=== PATIENT | female | born 1990 | race Caucasian/White ===

== ENCOUNTER 2016-09-14 21:14 | Emergency (ER) | payer SELFPAY ==
[2016-09-14] MEDS ORDERED: TORAdol 30 mg Injection IV ONE (21:33)
[2016-09-14] MEDS ORDERED: Sodium Chloride 0.9% 1000 ML 1,000 ML IV STA (21:33)
[2016-09-14] MEDS ORDERED: THIAMINE 200 MG/2 ML IV ONE (21:37)
[2016-09-14] MEDS ORDERED: Zofran 4 MG/2 ML VIAL IV ONE (21:39)
[2016-09-14] MEDS ORDERED: Sodium Chloride 0.9% 1000 ML 1,000 ML ONE (21:43)
[2016-09-14] MEDS ORDERED: Zofran 4 MG/2 ML VIAL ONE (21:44)
[2016-09-14] MEDS ORDERED: THIAMINE 200 MG/2 ML ONE (21:44)
[2016-09-14] MEDS ORDERED: TORAdol 30 mg Injection ONE (21:44)
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
[2016-09-14 21:54] LABS: BASOPHIL % 0.4 % (0.0-0.4); Granulocytes % 73.9 % (36.0-66.0); Lymphocytes % 19.1 % (24.0-44.0); Mean Cell Volume 84.1 fl (78-100); Mean Corpuscular Hemoglobin 26.6 pg (26-32); Mean Platelet Volume 11.3 fl (6-9.5); Monocytes % 6.6 % (0.0-12.0); Platelet Count 232 K/mm3 (150-450); Red Blood Count 4.02 M/mm3 (4.1-5.4); White Blood Count 5.2 K/mm3 (4.0-10.5)
[2016-09-14 22:16] LABS: ALBUMIN 4.5 g/dL (3.4-5.0); ALKALINE PHOSPHATASE 63 U/L (46-116); ANION GAP 16.8 MEQ/L (5-15); BILIRUBIN,TOTAL 0.8 mg/dL (0.2-1.0); BLOOD UREA NITROGEN 15 mg/dL (9-20); CHLORIDE 106 mEq/L (98-107); Carbon Dioxide 22.9 mEq/L (21-32); Glucose 109 MG/DL (70-110); LIPASE 107 U/L (73-393); Potassium 3.7 mEq/L (3.5-5.1); SGOT/AST 19 U/L (15-37); SGPT/ALT 16 U/L (12-78); SODIUM 142 mEq/L (136-145); Total Protein 8.3 gm/dL (6.4-8.2)
[2016-09-14] MEDS ORDERED: NORCO 5/325 MG PO ONE ×2 (23:17→23:55)
[2016-09-14] MEDS ORDERED: NORCO 5/325 MG ONE (23:19)
[2016-09-14] MEDS ORDERED: BACIGUENT PACKET TP ONE (23:33)
[2016-09-14] MEDS ORDERED: BACIGUENT PACKET ONE (23:37)
[2016-09-15] MEDS ORDERED: NORCO 5/325 MG ONE (00:10)
[2016-09-15 00:14] VITALS: BP 121/85; PULSE 110; O2SAT 98
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
== END 2016-09-15 00:30 | disposition home or self-care (01) ==
LOC: ED 21:14
DX: S00.93XA Contusion of unspecified part of head, initial encounter (principal); S50.11XA Contusion of right forearm, initial encounter; S60.221A Contusion of right hand, initial encounter; Y08.02XA Assault by strike by baseball bat, initial encounter
CPT/HCPCS: 36000; 36415; 70450; 72125; 73090; 73130; 80053; 82150; 83690; 84703; 85025; 93005; 93041; 94760; 96360; 96374; 96375; 99284; G0481; J1885; J2405; L3908

== ENCOUNTER 2019-02-06 21:04 | Emergency (ER) | payer OTHER ==
[2019-02-06] MEDS ORDERED: Sodium Chloride 0.9% 1000 ML 1,000 ML IV STA (21:20)
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
[2019-02-06] MEDS ORDERED: Sodium Chloride 0.9% 1000 ML 2,000 ML ONE (21:26)
[2019-02-06] MEDS ORDERED: SUBLIMAZE 100 MCG/2 ML IV ONE (21:29)
[2019-02-06 21:30] VITALS: BP 114/66; PULSE 110; O2SAT 99
[2019-02-06] MEDS ORDERED: SUBLIMAZE 100 MCG/2 ML ONE (21:30)
[2019-02-06 21:42] LABS: A-aADO2 275; ABG HEMOGLOBIN 10.9; ARTERIAL BLD GAS O2 SATURATION 99.7 % (95-100); ARTERIAL BLD GAS TIDAL VOLUME 490 cc; ARTERIAL BLOOD GAS BASE EXCESS -6.9 (-2.0-2.0); ARTERIAL BLOOD GAS FIO2 100 %; ARTERIAL BLOOD GAS PCO2 30 mmHg (35-45); ARTERIAL BLOOD GAS PEEP 5 cmH2O; ARTERIAL BLOOD GAS PO2 401 mmHg (75-100); ARTERIAL BLOOD GAS pH 7.37 (7.35-7.45); CARBOXYHEMOGLOBIN 2.7 % THgb (0.0-6.9); HCO3- 17.3 (22-28); HGB O2 SAT 95.6 g/dF (94-100); Methhemoglobin 1.4 % (1.4-1.5); paO2 pAO1 0.59
[2019-02-06 21:44] LABS: Lactic Acid 2.5 (0.4-2.0)
[2019-02-06 21:52] LABS: Appearance CLEAR (CLEAR); Bilirubin NEGATIVE (NEGATIVE); Blood NEGATIVE Ery/ul (0-5); Glucose NEGATIVE (NEGATIVE); Ketones NEGATIVE (NEGATIVE); Leukocyte Esterase NEGATIVE (NEGATIVE); Nitrite NEGATIVE (NEGATIVE); Protein,Urine Dip NEGATIVE (Negative); Specific Gravity 1.003 (1.005-1.025); Urobilinogen NEGATIVE mg/dL (0-1)
[2019-02-06] MEDS ORDERED: Versed 2 MG/2 ML Injection IV ONE ×2 (22:15→22:31)
[2019-02-06] MEDS ORDERED: Ketamine HCl 50 MG/ML IV ONE ×2 (22:22→22:32)
[2019-02-06 22:54] LABS: Amphetamine,Urine NEGATIVE (NEGATIVE); Barbiturate,Urine NEGATIVE (NEGATIVE); Benzodiazepine,Urine NEGATIVE (NEGATIVE); Cocaine,Urine NEGATIVE (NEGATIVE); Methadone,Urine NEGATIVE (NEGATIVE); Opiate,Urine NEGATIVE (NEGATIVE); PCP,Urine NEGATIVE (NEGATIVE); THC,Urine POSITIVE (NEGATIVE)
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
== END 2019-02-06 22:00 | disposition short-term general hospital (02) ==
LOC: ED 21:04
DX: R41.82 Altered mental status, unspecified (principal); S06.899A Other specified intracranial injury with loss of consciousness of unspecified duration, initial encounter; T14.90XA Injury, unspecified, initial encounter; V89.0XXA Person injured in unspecified motor-vehicle accident, nontraffic, initial encounter; Y93.9 Activity, unspecified; Y92.830 Public park as the place of occurrence of the external cause; Z72.89 Other problems related to lifestyle; B19.20 Unspecified viral hepatitis C without hepatic coma
CPT/HCPCS: 36000; 36600; 51702; 70450; 71045; 72125; 72192; 80307; 81001; 82375; 82803; 83605; 87086; 93005; 94002; 96360; 96374; 99284; 99291; J3010

== ENCOUNTER 2019-10-23 13:26 | Emergency (ER) | payer BC, OTHER ==
--- NOTE | 2019-10-23 14:07 | ERPHSYRPT ---
- History of Present Illness Patient Subjective Stated Complaint: PT states "I had knee surgery on Sep 20. Last wed I noticed what looked like a pimple and my right knee is swelling and hurts up into my thigh." Triage Nursing Assessment: Pt presented alert and oriented X 3, skin pwd pt ambulates with a limp. PT right knee red, small pimple like blister on knee with rednees to skin around knee and up into the thigh. Physician History: Patient states "I had knee surgery on Sep 20. Last wed I noticed what looked like a pimple and my right knee is swelling and hurts up into my thigh." ambulates with a limp. Patient right knee red, small pimple like blister on knee with rednees to skin around knee and up into the thigh. Severity of Pain-Max: moderate Severity of Pain-Current: moderate Lower Extremities Pain: knee: right Associated Symptoms: unable to bear weight Allergies/Adverse Reactions: shellfish derived Allergy (Verified 07/11/16 17:08) aloe vera Adverse Reaction (Verified 07/11/16 17:08) Hx Tetanus, Diphtheria Vaccination/Date Given: Yes Hx Influenza Vaccination/Date Given: No Hx Pneumococcal Vaccination/Date Given: No Immunizations Up to Date: Yes - Review of Systems Constitutional: No Fever, No Chills Eyes: No Symptoms Ears, Nose, & Throat: No Symptoms Respiratory: No Cough, No Dyspnea Cardiac: No Chest Pain, No Edema, No Syncope Abdominal/Gastrointestinal: No Abdominal Pain, No Nausea, No Vomiting, No Diarrhea Genitourinary Symptoms: No Dysuria Musculoskeletal: Joint Redness (right knee), No Back Pain, No Neck Pain, No Deformity, No Fall Skin: No Rash Neurological: No Dizziness, No Focal Weakness, No Sensory Changes Psychological: No Symptoms Endocrine: No Symptoms All Other Systems: Reviewed and Negative - Past Medical History Pertinent Past Medical History: Yes Neurological History: Migraines ENT History: No Pertinent History Cardiac History: No Pertinent History Respiratory History: No Pertinent History Endocrine Medical History: No Pertinent History Musculoskeletal History: No Pertinent History GI Medical History: Hepatitis History: No Pertinent History Psycho-Social History: Depression, Other Female Reproductive Disorders: No Pertinent History Other Medical History: HEPATITIS C - Past Surgical History Past Surgical History: Yes Neuro Surgical History: No Pertinent History Cardiac: No Pertinent History Respiratory: No Pertinent History Gastrointestinal: Cholecystectomy Genitourinary: No Pertinent History Musculoskeletal: No Pertinent History Female Surgical History: No Pertinent History Other Surgical History: CYST RENIVED. right knee. egd - Social History Smoking Status: Current every day smoker How long have you smoked: years Exposure to second hand smoke: Yes Alcohol Use: Chronic (states have been using alcohol quite heavily since release from residential in early Jun.) Drug Use: none Patient Lives Alone: No - Female History Hx Last Menstrual Period: 10/09/2019 Hx Now: No - Nursing Vital Signs Nursing Vital Signs: Initial Vital Signs Temperature 97.7 F 10/23/19 13:32 Pulse Rate 102 H 10/23/19 13:32 Respiratory Rate 22 10/23/19 13:32 Blood Pressure 134/90 10/23/19 13:32 O2 Sat by Pulse Oximetry 100 10/23/19 13:32 Pain Scale Pain Intensity 5 - Physical Exam General Appearance: alert Eyes, Ears, Nose, Throat Exam: moist mucous membranes Neck Exam: non-tender, supple Cardiovascular/Respiratory Exam: chest non-tender, normal breath sounds, regular rate/rhythm, no respiratory distress Gastrointestinal/Abdominal Exam: non-tender, guarding Back Exam: normal inspection, No vertebral tenderness Knees Exam: right knee: pain, soft tissue tenderness, swelling Neuro/Tendon Exam: normal sensation, normal motor functions Mental Status Exam: alert, oriented x 3, cooperative Skin Exam: normal color, warm, dry SpO2: 100 - Course Nursing assessment & vital signs reviewed: Yes - Radiology Exams Knee X-ray Interpretation: Reviewed by me, Negative, No Fracture, No Subluxation Ordered Tests: Active Orders 24 hr Category Date Time Status KNEE (3 VIEWS) Stat Exams 10/23/19 14:03 Taken CBC W DIFF Stat Lab 10/23/19 14:15 Completed Medication Summary Generic Name Dose Route Start Last Admin Trade Name Freq PRN Reason Stop Dose Admin Ketorolac Tromethamine 60 mg 10/23/19 14:46 Toradol 30 Mg Injection IM 10/23/19 14:47 STAT ONE Discontinued Medications Generic Name Dose Route Start Last Admin Trade Name Freq PRN Reason Stop Dose Admin Ceftriaxone Sodium 1,000 mg 10/23/19 14:45 Rocephin 1000 Mg Inj IM 10/23/19 14:46 STAT ONE Ibuprofen 400 mg 10/23/19 14:12 10/23/19 14:14 Motrin 400 Mg PO 10/23/19 14:13 400 mg STAT ONE Administration Ibuprofen Confirm 10/23/19 14:13 Motrin 400 Mg Administered 10/23/19 14:14 Dose 400 mg .ROUTE .STK-MED ONE Lab/Rad Data: Laboratory Result Diagrams 10/23/19 14:15 Laboratory Results 10/23/19 Range/Units 14:15 WBC 5.1 (4.0-10.5) K/mm3 RBC 4.10 (4.1-5.4) M/mm3 Hgb 12.0 (12.0-16.0) gm/dl Hct 36.7 (35-47) % MCV 89.5 (78-100) fl MCH 29.3 (26-32) pg MCHC 32.7 (32-36) g/dl RDW 14.4 H (11.5-14.0) % Plt Count 164 (150-450) K/mm3 MPV 12.2 H (7.5-11.0) fl Gran % 63.5 (36.0-66.0) % Eos # (Auto) 0.08 (0-0.5) Absolute Lymphs (auto) 1.32 (1.0-4.6) Absolute Monos (auto) 0.44 (0.0-1.3) Lymphocytes % 25.7 (24.0-44.0) % Monocytes % 8.6 (0.0-12.0) % Eosinophils % 1.6 (0.00-5.0) % Basophils % 0.6 (0.0-0.4) % Absolute Granulocytes 3.27 (1.4-6.9) Basophils # 0.03 (0-0.4) - Progress Progress: improved, pain not gone completely Counseled pt/family regarding: lab results, diagnosis, need for follow-up, rad results - Departure Departure Disposition: Home Clinical Impression: Cellulitis of knee, right Condition: Stable Critical Care Time: No Referrals: AMANDA ISAACS [Primary Care Provider] - Instructions: Knee Pain (DC), Cellulitis (Skin Infection), Adult (DC) Additional Instructions: Discharge/Care Plan SERAFIN LLOYDKIRAN MATHEWS was seen on 10/23/19 in the Emergency Room. The patient was counseled regarding Diagnosis,Lab results, Imaging studies, need for follow up and when to return to the Emergency Room. Prescriptions given: Discharge Note I have spoken with the patient and/or caregivers. I have explained the patient' s condition, diagnosis and treatment plan based on the information available to me at this time. I have answered the patient's and/or caregiver's questions and addressed any concerns. The patient and/or caregivers have as good understanding of the patient's diagnosis, condition and treatment plan as can be expected at this point. The vital signs have been stable. The patient's condition is stable and appropriate for discharge from the emergency department. The patient will pursue further outpatient evaluation with the primary care physician or other designated or consulting physician as outlined in the discharge instructions. The patient and/or caregivers are agreeable to this plan of care and follow-up instructions have been explained in detail. The patient and/or caregivers have received these instruction. The patient/and or caregivers are aware that any significant change in condition or worsening of symptoms should prompt an immediate return to this or the closest emergency department or call 911. TADEO LLOYD was seen on 10/23/19 n the Emergency Room. At that time you were treated for an emergent condition, during your visit Laboratory, Radiology and/or other procedures may have been ordered. It is very important that you follow-up with your Primary Care Physician AMANDA ISAACS within the next 24- 48 hours to review your Emergency Room visit and the final results of testing that was ordered. Some test results such as Urine Cultures, Blood Cultures, and other cultures if ordered will not be finalized for 24-48 hours. If you do not have a Primary Care Provider please call the medical records department at [phone] ext [phone] to obtain a copy of your results or you may sign into our patient portal to obtain these results by visiting us @ [email or web address] and completing the following steps: 1. Click on the Patient Portal link 2. Click the Patient Self Enrollment Link to complete the enrollment form and entering your 3. Once the enrollment form is completed you will receive an email with a temporary ID and password at the email address you provided. 4. Next choose a user name and password. Your user name must be at least 4 characters long and your password must be at least 4 characters long. 5. Choose a security question from the list and provide your answer to the question. If you already have signed into the Health Portal you may access your Health Care Information 07/04 by the following steps: 1. Login to our website @ [email or web address] 2. Enter your original user name and password. FAQS [facility] Portal is an online tool that contains your Lab Results, Radiology Reports, Visit History, Discharge Instructions and Health Summary Lab and Radiology Results will not be available for 72 hours on the portal. The Portal is a secure site, passwords are encryted and URLs are re-written so they cannot be copied and pasted. You and authorized family members are the only ones who can access your Portal. Also there is a timeout feature that protects your information if you leave the Portal page open. If you have technical difficulty please use the Contact Us link on the page this will allow you to submit any questions you have regarding the Portal or you may contact the Medical Record Department at [phone]. Prescriptions: Cephalexin Mh 500 mg [Keflex 500 mg] 500 mg PO Q6H #40 capsule Naproxen 500 mg [Naprosyn 500 MG] 500 mg PO BIDAC #30 tablet
[2019-10-23] MEDS ORDERED: MOTRIN 400 MG PO ONE (14:12)
[2019-10-23] MEDS ORDERED: MOTRIN 400 MG ONE (14:13)
[2019-10-23 14:23] LABS: Absolute Neutrophil Ct (ANC) 3.27 (1.4-6.9); BASOPHIL % 0.6 % (0.0-0.4); Basophil (Absolute #) 0.03 (0-0.4); Eosinophil % 1.6 % (0.00-5.0); Eosinophil (Absolute #) 0.08 (0-0.5); Hematocrit 36.7 % (35-47); Lymphocyte (Absolute #) 1.32 (1.0-4.6); Lymphocytes % 25.7 % (24.0-44.0); Mean Cell Volume 89.5 fl (78-100); Mean Corpuscular Hemoglobin 29.3 pg (26-32); Mean Corpuscular Hgb Concent. 32.7 g/dl (32-36); Mean Platelet Volume 12.2 fl (7.5-11.0); Monocyte (Absolute #) 0.44 (0.0-1.3); Monocytes % 8.6 % (0.0-12.0); Neutrophil % 63.5 % (36.0-66.0); Platelet Count 164 K/mm3 (150-450); Red Cell Distribution Width 14.4 % (11.5-14.0); White Blood Count 5.1 K/mm3 (4.0-10.5)
[2019-10-23] MEDS ORDERED: Rocephin 1000 MG INJ IM ONE (14:45)
[2019-10-23] MEDS ORDERED: TORAdol 30 mg Injection IM ONE (14:46)
[2019-10-23 14:55] VITALS: BP 120/75; PULSE 84; O2SAT 98
[2019-10-23] MEDS ORDERED: TORAdol 30 mg Injection ONE (14:55)
[2019-10-23] MEDS ORDERED: XYLOCAINE 1% HCL 20 ML MDV IJ ONE (14:55)
[2019-10-23] MEDS ORDERED: Rocephin 1000 MG INJ ONE (14:55)
--- NOTE | 2019-10-23 21:36 | XRAY ---
Indication: Diffuse pain. Status post knee surgery September 20, 2019. Comparison: None 3 views of the right knee demonstrates tiny nonspecific suprapatellar effusion. No other bony, articular, or soft tissue abnormalities.
== END 2019-10-23 15:28 | disposition home or self-care (01) ==
LOC: ED 13:26
DX: L03.115 Cellulitis of right lower limb (principal); Z98.890 Other specified postprocedural states
CPT/HCPCS: 36415; 73562; 85025; 96372; 99284; J0696; J1885; A9270-GY

== ENCOUNTER 2020-03-07 10:46 | Emergency (ER) | payer OTHER, BC ==
[2020-03-07] MEDS ORDERED: TORAdol 30 mg Injection IM ONE (10:58)
[2020-03-07] MEDS ORDERED: TORAdol 30 mg Injection ONE (11:00)
--- NOTE | 2020-03-07 11:01 | ERPHSYRPT ---
- History of Present Illness Time Seen by Provider: 03/07/20 10:55 Source: patient Exam Limitations: no limitations Physician History: Patient is a 29-year-old female presents to our ED for evaluation of pain and tingling to her bilateral hands. Symptoms have been ongoing for several weeks but have gotten acutely worse over the past couple days. Patient believes she has carpal tunnel syndrome. Patient's job requires repetitive motion. She has some soreness of her forearms as well. No blunt trauma. No fever. No nausea vomiting or diaphoresis. No chest pain or shortness of breath. No back pain. No neck pain. No headache. Symptoms are constant. Patient states symptoms are worse at night. Patient is otherwise healthy. She voices no other complaints at this time. Patient declined the possibility of and refused a urine test. Occurred: last week (Symptoms have been ongoing for several weeks but states that her symptoms have gotten worse over the past few days.) Quality: constant Severity of Pain-Max: moderate Severity of Pain-Current: mild Extremities Pain Location: hand: left (Bilateral hands.) Modifying Factors: Improves With: immobilization, movement, pain medication Associated Symptoms: none Allergies/Adverse Reactions: shellfish derived Allergy (Verified 03/07/20 11:03) aloe vera Adverse Reaction (Verified 03/07/20 11:03) Hx Tetanus, Diphtheria Vaccination/Date Given: Yes Hx Influenza Vaccination/Date Given: No Hx Pneumococcal Vaccination/Date Given: No - Review of Systems Constitutional: No Symptoms, No Fever, No Chills Eyes: No Symptoms Ears, Nose, & Throat: No Symptoms Respiratory: No Symptoms, No Cough, No Dyspnea Cardiac: No Symptoms, No Chest Pain, No Edema, No Syncope Abdominal/Gastrointestinal: No Symptoms, No Abdominal Pain, No Nausea, No Vomiting, No Diarrhea Genitourinary Symptoms: No Symptoms, No Dysuria Musculoskeletal: No Symptoms, No Back Pain, No Neck Pain Skin: No Symptoms, No Rash Neurological: No Symptoms, No Dizziness, No Focal Weakness, No Sensory Changes Psychological: No Symptoms Endocrine: No Symptoms Hematologic/Lymphatic: No Symptoms Immunological/Allergic: No Symptoms All Other Systems: Reviewed and Negative - Past Medical History Pertinent Past Medical History: Yes Neurological History: Migraines ENT History: No Pertinent History Cardiac History: No Pertinent History Respiratory History: No Pertinent History Endocrine Medical History: No Pertinent History Musculoskeletal History: No Pertinent History GI Medical History: Hepatitis History: No Pertinent History Psycho-Social History: Depression, Other Female Reproductive Disorders: No Pertinent History Other Medical History: HEPATITIS C - Past Surgical History Past Surgical History: Yes Neuro Surgical History: No Pertinent History Cardiac: No Pertinent History Respiratory: No Pertinent History Gastrointestinal: Cholecystectomy Genitourinary: No Pertinent History Musculoskeletal: No Pertinent History Female Surgical History: No Pertinent History Other Surgical History: CYST RENIVED. right knee. egd - Social History Smoking Status: Current every day smoker How long have you smoked: years Exposure to second hand smoke: Yes Alcohol Use: Chronic (states have been using alcohol quite heavily since release from [facility] in early Jun.) Drug Use: none Patient Lives Alone: No - Nursing Vital Signs Nursing Vital Signs: Initial Vital Signs Temperature 97.9 F 03/07/20 10:53 Pulse Rate 77 03/07/20 10:53 Respiratory Rate 16 03/07/20 10:53 Blood Pressure 127/88 03/07/20 10:53 O2 Sat by Pulse Oximetry 100 03/07/20 10:53 Pain Scale Pain Intensity 7 - Physical Exam General Appearance: no apparent distress, alert Neck Exam: non-tender, supple, full range of motion Cardiovascular/Respiratory Exam: chest non-tender, normal breath sounds, regular rate/rhythm, no respiratory distress Abdominal Exam: non-tender, No guarding Back Exam: normal inspection, normal range of motion, No vertebral tenderness Shoulder Exam: normal inspection, non-tender Elbow/Forearm Exam: normal inspection, non-tender Wrist Exam: normal inspection, normal ROM, pain (Positive Tinel sign and Phalen sign bilaterally. There is somewhat diminished sensation along the median nerve distribution. Mild tenderness along the left dorsal forearm extensor musculature.), No bone tenderness, No deformity, No ecchymosis Hand Exam: normal inspection, No bone tenderness Neuro/Tendon Exam: normal sensation, normal motor functions Mental Status Exam: alert, oriented x 3, cooperative Skin Exam: normal color, warm, dry SpO2 Interpretation: normal SpO2: 100 O2 Delivery: Room Air Ordered Tests: Active Orders 24 hr Category Date Time Status Nursing [Miscellaneous Nursing Order] ROUTINE Care 03/07/20 10:59 Active Medication Summary Discontinued Medications Generic Name Dose Route Start Last Admin Trade Name Freq PRN Reason Stop Dose Admin Dexamethasone 8 mg 03/07/20 11:12 Decadron 4 Mg PO 03/07/20 11:13 ONCE STA Ketorolac Tromethamine 60 mg 03/07/20 10:58 03/07/20 11:03 Toradol 30 Mg Injection IM 03/07/20 10:59 Not Given STAT ONE Ketorolac Tromethamine Confirm 03/07/20 11:00 Toradol 30 Mg Injection Administered 03/07/20 11:01 Dose 60 mg .ROUTE .STK-MED ONE Lidocaine 2 patch 03/07/20 11:14 Lidoderm Patch 5% TOP 03/07/20 11:15 ONCE STA - Progress Progress: improved Progress Note: 03/07/20 11:27 Patient reassessed. Pain improved. Patient refused Toradol. Patient agreed to Decadron and Lidoderm patch. Patient was given bilateral wrist cock-up splints patient given a referral to orthopedic surgery. Patient given a work note for rest. A prescription for Toradol was transmitted to patient's pharmacy. Patient voiced no other complaints or concerns at this time. Counseled pt/family regarding: diagnosis, need for follow-up - Departure Departure Disposition: Home Clinical Impression: Carpal tunnel syndrome of left wrist, Carpal tunnel syndrome of right wrist, Repetitive motion injury Condition: Stable Critical Care Time: No Referrals: DOCTOR,NO FAMILY [Primary Care Provider] - Additional Instructions: Discharge/Care Plan TADEO LLOYD was seen on 03/07/20 in the Emergency Room. The patient was counseled regarding Diagnosis,Lab results, Imaging studies, need for follow up and when to return to the Emergency Room. Prescriptions given: Discharge Note I have spoken with the patient and/or caregivers. I have explained the patient's condition, diagnosis and treatment plan based on the information available to me at this time. I have answered the patient's and/or caregiver's questions and addressed any concerns. The patient and/or caregivers have as good understanding of the patient's diagnosis, condition and treatment plan as can be expected at this point. The vital signs have been stable. The patient's condition is stable and appropriate for discharge from the emergency department. The patient will pursue further outpatient evaluation with the primary care physician or other designated or consulting physician as outlined in the discha rge instructions. The patient and/or caregivers are agreeable to this plan of care and follow-up instructions have been explained in detail. The patient and/or caregivers have received these instruction. The patient/and or caregivers are aware that any significant change in condition or worsening of symptoms should prompt an immediate return to this or the closest emergency department or call 911. Forms: Work/School Release Form Prescriptions: Ketorolac Tromethamine [Toradol] 10 mg PO TID 5 Days #15 tablet Outpatient Orders: Ortho Referral Time Frame: 1 Day, Facility: [facility], Location: [facility]
[2020-03-07] MEDS ORDERED: Decadron 4 MG PO STA (11:12)
[2020-03-07] MEDS ORDERED: Lidoderm Patch 5% TOP STA (11:14)
[2020-03-07 11:15] VITALS: BP 124/91; PULSE 84
[2020-03-07 11:30] VITALS: O2SAT 100
== END 2020-03-07 11:25 | disposition home or self-care (01) ==
LOC: ED 10:46
DX: G56.02 Carpal tunnel syndrome, left upper limb (principal); G56.01 Carpal tunnel syndrome, right upper limb; X50.3XXA Overexertion from repetitive movements, initial encounter; Y99.0 Civilian activity done for income or pay
CPT/HCPCS: 99283; J1885; L3908; A9270-GY

== ENCOUNTER 2020-07-06 19:39 | Emergency (ER) | payer BC ==
--- NOTE | 2020-07-06 20:35 | ERPHSYRPT ---
- History of Present Illness Source: patient Exam Limitations: other (Poor historian) Patient Subjective Stated Complaint: pt c/o dizziness and weak and doesn't feel right Triage Nursing Assessment: pt c/o dizziness and weak and doesn't feel right, had carpal tunnel and cubital surgery on the left side on 06/29/20. Pt states, "today is the first day that I've got up and moving and I don't feel right". My lips are numb, my legs and arms feel lethargic and my left shoulder is burning". Pt is wearing a sling to left arm. Physician History: 29 yo wf s/p L carpal tunnel/L cubital tunnel surgery on 06/29 presents w dizziness/lethargy/generalized weakness x 2 hours. Pt denies focal weakness/chest pain/dyspnea/fever/N/V/D//VALDIVIA/cough. Timing/Duration: other (2 hours) Severity: moderate Character of Deficits: new weakness, altered sensation Deficits: no difficulties, weak Baseline/Normal Cognition: alert oriented x 3 Current Cognition: alert oriented x 3 Baseline Gait: walks w/o assistance Associated Symptoms: fatigue, weakness, No confusion, No fever, No chills, No loss of consciousness, No nausea, No vomiting, No insomnia, No muscle spasms, No numbness/tingling in legs/feet, No paresthesia, No ringing in ears, No seizures, No slurred speech, No trouble walking, No vision changes, No chest pain, No headache Allergies/Adverse Reactions: shellfish derived Allergy (Intermediate, Verified 07/06/20 19:59) Swelling aloe vera Adverse Reaction (Intermediate, Verified 07/06/20 19:59) Hives Home Medications: Hydrocodone/APAP 5-325 Tab^^^ [[place] 5-325 Tablet^^^] 1 tab PO Q6HPRN PRN 07/06/20 [History] Hx Tetanus, Diphtheria Vaccination/Date Given: Yes Hx Influenza Vaccination/Date Given: No Hx Pneumococcal Vaccination/Date Given: No Immunizations Up to Date: Yes Travel Risk - International Travel Have you traveled outside of the country in past 3 weeks: No - Coronavirus Screening Are you exhibiting any of the following symptoms?: No Close contact with a COVID-19 positive Pt in past 14-21 Days: No - Review of Systems Constitutional: No Symptoms, Weakness Eyes: No Symptoms, Double Vision Ears, Nose, & Throat: No Symptoms Respiratory: No Symptoms Cardiac: No Symptoms Abdominal/Gastrointestinal: No Symptoms Genitourinary Symptoms: No Symptoms Musculoskeletal: No Symptoms Skin: No Symptoms Neurological: Dizziness, No Focal Weakness, No Gait Changes, No Headache, No Irritability, No Lethargy, No Paralysis, No Parasthesia, No Seizure, No Sensory Changes, No Speech Changes, No Tics, No Tremors, No Vertigo Psychological: No Symptoms Endocrine: No Symptoms Hematologic/Lymphatic: No Symptoms Immunological/Allergic: No Symptoms - Past Medical History Pertinent Past Medical History: Yes Neurological History: Migraines ENT History: No Pertinent History Cardiac History: No Pertinent History Respiratory History: No Pertinent History Endocrine Medical History: No Pertinent History Musculoskeletal History: No Pertinent History GI Medical History: Hepatitis History: No Pertinent History Psycho-Social History: Depression, Other Female Reproductive Disorders: No Pertinent History Other Medical History: HEPATITIS C - Past Surgical History Past Surgical History: Yes Neuro Surgical History: No Pertinent History Cardiac: No Pertinent History Respiratory: No Pertinent History Gastrointestinal: Cholecystectomy Genitourinary: No Pertinent History Musculoskeletal: No Pertinent History Female Surgical History: No Pertinent History Other Surgical History: CYST REmoved. rt and lt carpal tunnel and cubital. right knee. egd - Social History Smoking Status: Current every day smoker How long have you smoked: 12 years Exposure to second hand smoke: Yes Alcohol Use: Chronic Drug Use: none Patient Lives Alone: No Significant Family History: no pertinent family hx - Female History Hx Now: No - Nursing Vital Signs Nursing Vital Signs: Initial Vital Signs Temperature 98.3 F 07/06/20 19:48 Pulse Rate 118 H 07/06/20 19:48 Respiratory Rate 18 07/06/20 19:48 Blood Pressure 135/92 07/06/20 19:48 O2 Sat by Pulse Oximetry 100 07/06/20 19:48 Pain Scale Pain Intensity 0 - [place] Coma Scale Best Eye Response ([place]): (4) open spontaneously Best Verbal Response ([place]): (5) oriented Best Motor Response ([place]): (6) obeys commands Larry Total: 15 - Physical Exam General Appearance: no apparent distress (Mildly lethargic) Eye Exam: bilateral eye: normal inspection, PERRL, EOMI Ears, Nose, Throat Exam: normal ENT inspection, TMs normal, pharynx normal, moist mucous membranes Neck Exam: normal inspection, non-tender, supple, full range of motion, No meningismus, No mass, No Brudzinski, No Kernig's, No carotid bruit, No JVD Respiratory: normal breath sounds, lungs clear, airway intact, No respiratory distress Cardiovascular: tachycardia Gastrointestinal: soft, normal bowel sounds, No tenderness Back Exam: normal inspection, normal range of motion, No CVA tenderness, No vertebral tenderness Extremity Exam: normal inspection (Sling LUE-good radial pulse, distal sensation, and capillary return) Peripheral Pulses: carotid (R): 2+, carotid (L): 2+ Mental Status: alert, oriented x 3, cooperative, lethargy, No agitated, No u ncooperative, No depressed affect, No disoriented to person, No disoriented to place, No disoriented to time, No intoxicated appearance, No unresponsive ergonomics consultant Exam: normal hearing, normal speech, PERRL, No abnormal eye position, No abnormal gag reflex, No abnormal pupil position, No abnormal speech, No facial asymmetry, No facial droop, No facial paresthesias, No facial weakness, No gaze palsy Coordination/Gait: normal finger to nose, normal gait, normal cerebellar function Motor/Sensory: no motor deficit, no sensory deficit, no pronator drift, negative Babinski's sign DTR: bicep (R): 2+, knee (R): 2+, knee (L): 2+ Skin Exam: normal color, warm, dry, No rash SpO2 Interpretation: normal SpO2: 100 O2 Delivery: Room Air - Course Nursing assessment & vital signs reviewed: Yes EKG Interpreted by Me: RATE (NSR/R86/Normal Qt-QTc/No T or St changes) - CT Exams Head CT Interpretation: Negative, Discussed w/radiologist Ordered Tests: Active Orders 24 hr Category Date Time Status EKG-ER Only STAT Care 07/06/20 20:27 Completed HEAD WITHOUT CONTRAST [CT] Stat Exams 07/06/20 20:28 Taken CBC W DIFF Stat Lab 07/06/20 20:43 Completed CMP Stat Lab 07/06/20 20:43 Completed D-DIMER QUANTITATIVE Stat Lab 07/06/20 20:43 Completed ETHYL ALCOHOL Stat Lab 07/06/20 20:43 Completed UA W/RFX UR CULTURE Stat Lab 07/06/20 22:02 Completed Urine Triage Profile Stat Lab 07/06/20 22:02 Completed Lab/Rad Data: Laboratory Result Diagrams 07/06/20 20:43 07/06/20 20:43 Laboratory Results 07/06/20 07/06/20 07/06/20 Range/Units 22:02 22:02 20:43 WBC (4.0-10.5) K/mm3 RBC (4.1-5.4) M/mm3 Hgb (12.0-16.0) gm/dl Hct (35-47) % MCV (78-100) fl MCH (26-32) pg MCHC (32-36) g/dl RDW (11.5-14.0) % Plt Count (150-450) K/mm3 MPV (7.5-11.0) fl Gran % (36.0-66.0) % Eos # (Auto) (0-0.5) Absolute Lymphs (auto) (1.0-4.6) Absolute Monos (auto) (0.0-1.3) Lymphocytes % (24.0-44.0) % Monocytes % (0.0-12.0) % Eosinophils % (0.00-5.0) % Basophils % (0.0-0.4) % Absolute Granulocytes (1.4-6.9) Basophils # (0-0.4) D-Dimer (215-500) ng/mL Sodium (137-145) mmol/L Potassium (3.5-5.1) mmol/L Chloride (98-107) mmol/L Carbon Dioxide (22-30) mmol/L Anion Gap (5-15) MEQ/L BUN (7-17) mg/dL Creatinine (0.52-1.04) mg/dL Estimated GFR ML/MIN Glucose (74-106) mg/dL Calcium (8.4-10.2) mg/dL Total Bilirubin (0.2-1.3) mg/dL AST (14-36) U/L ALT (0-35) U/L Alkaline Phosphatase (38-126) U/L Serum Total Protein (6.3-8.2) g/dL Albumin (3.5-5.0) g/dL Urine Color YELLOW (YELLOW) Urine Appearance CLEAR (CLEAR) Urine pH 6.0 (5-6) Ur Specific Center 1.006 (1.005-1.025) Urine Protein NEGATIVE (Negative) Urine Ketones NEGATIVE (NEGATIVE) Urine Blood LARGE (0-5) Jong/ul Urine Nitrite NEGATIVE (NEGATIVE) Urine Bilirubin NEGATIVE (NEGATIVE) Urine Urobilinogen NEGATIVE (0-1) mg/dL Ur Leukocyte Esterase NEGATIVE (NEGATIVE) Urine WBC (Auto) NONE (0-5) /HPF Urine RBC (Auto) 3-5 (0-2) /HPF U Epithel Cells (Auto) RARE (FEW) /HPF Urine Bacteria (Auto) NONE SEEN (NEGATIVE) /HPF Urine Mucus (Auto) SLIGHT (NEGATIVE) /HPF Urine Culture Reflexed NO (NO) Urine Glucose NEGATIVE (NEGATIVE) mg/dL Urine Opiates Level POSITIVE (NEGATIVE) Ur Methadone NEGATIVE (NEGATIVE) Urine Barbiturates NEGATIVE (NEGATIVE) Ur Phencyclidine (PCP) NEGATIVE (NEGATIVE) Urine Amphetamine NEGATIVE (NEGATIVE) U Benzodiazepine Level NEGATIVE (NEGATIVE) Urine Cocaine NEGATIVE (NEGATIVE) Urine Marijuana (THC) POSITIVE (NEGATIVE) Ethyl Alcohol < 10 (0-10) mg/dL 07/06/20 07/06/20 07/06/20 Range/Units 20:43 20:43 20:43 WBC 4.6 (4.0-10.5) K/mm3 RBC 4.27 (4.1-5.4) M/mm3 Hgb 12.1 (12.0-16.0) gm/dl Hct 37.4 (35-47) % MCV 87.6 (78-100) fl MCH 28.3 (26-32) pg MCHC 32.4 (32-36) g/dl RDW 14.2 H (11.5-14.0) % Plt Count 180 (150-450) K/mm3 MPV 12.3 H (7.5-11.0) fl Gran % 65.5 (36.0-66.0) % Eos # (Auto) 0.06 (0-0.5) Absolute Lymphs (auto) 1.10 (1.0-4.6) Absolute Monos (auto) 0.42 (0.0-1.3) Lymphocytes % 23.7 L (24.0-44.0) % Monocytes % 9.1 (0.0-12.0) % Eosinophils % 1.3 (0.00-5.0) % Basophils % 0.4 (0.0-0.4) % Absolute Granulocytes 3.04 (1.4-6.9) Basophils # 0.02 (0-0.4) D-Dimer 429 (215-500) ng/mL Sodium 136 L (137-145) mmol/L Potassium 3.6 (3.5-5.1) mmol/L Chloride 106 (98-107) mmol/L Carbon Dioxide 21 L (22-30) mmol/L Anion Gap 12.3 (5-15) MEQ/L BUN 16 (7-17) mg/dL Creatinine 0.90 (0.52-1.04) mg/dL Estimated GFR > 60.0 ML/MIN Glucose 107 H (74-106) mg/dL Calcium 9.5 (8.4-10.2) mg/dL Total Bilirubin 0.60 (0.2-1.3) mg/dL AST 22 (14-36) U/L ALT 12 (0-35) U/L Alkaline Phosphatase 50 (38-126) U/L Serum Total Protein 8.3 H (6.3-8.2) g/dL Albumin 4.8 (3.5-5.0) g/dL Urine Color (YELLOW) Urine Appearance (CLEAR) Urine pH (5-6) Ur Specific Center (1.005-1.025) Urine Protein (Negative) Urine Ketones (NEGATIVE) Urine Blood (0-5) Jong/ul Urine Nitrite (NEGATIVE) Urine Bilirubin (NEGATIVE) Urine Urobilinogen (0-1) mg/dL Ur Leukocyte Esterase (NEGATIVE) Urine WBC (Auto) (0-5) /HPF Urine RBC (Auto) (0-2) /HPF U Epithel Cells (Auto) (FEW) /HPF Urine Bacteria (Auto) (NEGATIVE) /HPF Urine Mucus (Auto) (NEGATIVE) /HPF Urine Culture Reflexed (NO) Urine Glucose (NEGATIVE) mg/dL Urine Opiates Level (NEGATIVE) Ur Methadone (NEGATIVE) Urine Barbiturates (NEGATIVE) Ur Phencyclidine (PCP) (NEGATIVE) Urine Amphetamine (NEGATIVE) U Benzodiazepine Level (NEGATIVE) Urine Cocaine (NEGATIVE) Urine Marijuana (THC) (NEGATIVE) Ethyl Alcohol (0-10) mg/dL - Progress Progress: unchanged Progress Note: 07/06/20 22:34 Pt wo evidence of infection-sepsis/CVA/PE. Symptoms most likely due to pain meds which pt is taking for recent surgery. Will DC pt to f/u w PCP in AM. Counseled pt/family regarding: lab results, diagnosis, need for follow-up, rad results - Departure Departure Disposition: Home Clinical Impression: Dizziness of unknown etiology Condition: Stable Critical Care Time: No Referrals: DOCTOR,NO FAMILY [Primary Care Provider] - Instructions: Dizziness, Nonvertigo, (DC) Additional Instructions: Follow up with your surgeon on Friday Rest No driving until better Return top ER for increasing dizziness/focal weakness/temperature greater than 100.5
[2020-07-06 20:45] LABS: Absolute Neutrophil Ct (ANC) 3.04 (1.4-6.9); BASOPHIL % 0.4 % (0.0-0.4); Basophil (Absolute #) 0.02 (0-0.4); Eosinophil % 1.3 % (0.00-5.0); Eosinophil (Absolute #) 0.06 (0-0.5); Hematocrit 37.4 % (35-47); Hemoglobin 12.1 gm/dl (12.0-16.0); Lymphocytes % 23.7 % (24.0-44.0); Mean Cell Volume 87.6 fl (78-100); Mean Corpuscular Hemoglobin 28.3 pg (26-32); Mean Corpuscular Hgb Concent. 32.4 g/dl (32-36); Mean Platelet Volume 12.3 fl (7.5-11.0); Monocyte (Absolute #) 0.42 (0.0-1.3); Monocytes % 9.1 % (0.0-12.0); Neutrophil % 65.5 % (36.0-66.0); Platelet Count 180 K/mm3 (150-450); Red Blood Count 4.27 M/mm3 (4.1-5.4); Red Cell Distribution Width 14.2 % (11.5-14.0); White Blood Count 4.6 K/mm3 (4.0-10.5)
[2020-07-06 21:00] LABS: ALBUMIN 4.8 g/dL (3.5-5.0); ALKALINE PHOSPHATASE 50 U/L (38-126); ANION GAP 12.3 MEQ/L (5-15); BLOOD UREA NITROGEN 16 mg/dL (7-17); CHLORIDE 106 mmol/L (98-107); Calcium 9.5 mg/dL (8.4-10.2); Carbon Dioxide 21 mmol/L (22-30); EST GLOMERULAR FILTRATION RATE > 60.0 ML/MIN; Glucose 107 mg/dL (74-106); Potassium 3.6 mmol/L (3.5-5.1); SGOT/AST 22 U/L (14-36); SGPT/ALT 12 U/L (0-35); SODIUM 136 mmol/L (137-145); Total Protein 8.3 g/dL (6.3-8.2)
[2020-07-06 22:15] LABS: Appearance CLEAR (CLEAR); Bilirubin NEGATIVE (NEGATIVE); Blood LARGE Ery/ul (0-5); Epithelial Cells RARE /HPF (FEW); Glucose NEGATIVE (NEGATIVE); Ketones NEGATIVE (NEGATIVE); Leukocyte Esterase NEGATIVE (NEGATIVE); Mucus SLIGHT /HPF (NEGATIVE); Nitrite NEGATIVE (NEGATIVE); Protein,Urine Dip NEGATIVE (Negative); Specific Gravity 1.006 (1.005-1.025); Urobilinogen NEGATIVE mg/dL (0-1)
[2020-07-06 22:21] LABS: Bacteria NONE SEEN /HPF (NEGATIVE)
[2020-07-06 22:23] LABS: Amphetamine,Urine NEGATIVE (NEGATIVE); Barbiturate,Urine NEGATIVE (NEGATIVE); Benzodiazepine,Urine NEGATIVE (NEGATIVE); Cocaine,Urine NEGATIVE (NEGATIVE); Methadone,Urine NEGATIVE (NEGATIVE); Opiate,Urine POSITIVE (NEGATIVE); PCP,Urine NEGATIVE (NEGATIVE); THC,Urine POSITIVE (NEGATIVE)
[2020-07-06 22:52] VITALS: BP 114/80; PULSE 84
[2020-07-07 00:02] VITALS: O2SAT 100
--- NOTE | 2020-07-07 08:56 | XRAY ---
Indication: Dizziness. Multiple contiguous axial images obtained through the head without contrast. Comparison: February 06, 2019. Normal appearing brain parenchyma, ventricles, and bony calvarium. Visualized paranasal sinuses and mastoid air cells are clear. Impression: Continued normal CT head without contrast exam.
== END 2020-07-06 22:59 | disposition home or self-care (01) ==
LOC: ED 19:39
DX: R42 Dizziness and giddiness (principal); B19.20 Unspecified viral hepatitis C without hepatic coma; Z72.0 Tobacco use
CPT/HCPCS: 36415; 70450; 80053; 80307; 81001; 85025; 85379; 93005; 99284; G0480

== ENCOUNTER 2021-11-01 14:10 | Emergency (ER) | payer BC, OTHER ==
[2021-11-01] MEDS ORDERED: Adacel Vial IM ONE ×2 (15:06→15:21)
--- NOTE | 2021-11-01 15:26 | XRAY ---
Indication: Headache injury following fall. Multiple contiguous axial images obtained through the head without contrast. Comparison: July 06, 2020. Normal appearing brain parenchyma, ventricles, and bony calvarium. Visualized paranasal sinuses and mastoid air cells are clear. Impression: Continued normal CT head without contrast exam.
[2021-11-01 15:27] VITALS: BP 106/57; PULSE 76; O2SAT 91
--- NOTE | 2021-11-01 16:08 | ERPHSYRPT ---
- History of Present Illness Time Seen by Provider: 11/01/21 15:04 Source: patient Exam Limitations: no limitations Patient Subjective Stated Complaint: Pt fell and hit head on a pole causing a laceration to the right side Triage Nursing Assessment: PT c/o of right head laceration due to her dogs tangling her up with their leashes and she tripped and hit a pole, vitals wnl, rates pain as 8/10, approx a 2cm laceration to the right side of head, pt attempted to super glue her head, N&V afterwards, photophobia, headache Physician History: 31-year-old female presented in the ER after she got tangled on the dog leash a nd fell hitting her head against a pole prior to arrival. There was bleeding initially but stopped with applying pressure. She is complaining of dull aching right-sided headache mild to moderate. Denies any numbness tingling or focal weakness. No visual symptoms. Occurred: just prior to arrival Severity: moderate Head Injury Location: parietal Method of Injury: fell Loss of Consciousness: no loss of consciousness Associated Symptoms: headaches Allergies/Adverse Reactions: shellfish derived Allergy (Intermediate, Verified 07/06/20 19:59) Swelling aloe vera Adverse Reaction (Intermediate, Verified 07/06/20 19:59) Hives Home Medications: Hydrocodone/APAP 5-325 Tab^^^ [[place] 5-325 Tablet^^^] 1 tab PO Q6HPRN PRN 07/06/20 [History] Hx Tetanus, Diphtheria Vaccination/Date Given: Yes Hx Influenza Vaccination/Date Given: No Hx Pneumococcal Vaccination/Date Given: No Travel Risk - International Travel Have you traveled outside of the country in past 3 weeks: No - Coronavirus Screening Are you exhibiting any of the following symptoms?: No Close contact with a COVID-19 positive Pt in past 14-21 Days: No - Vaccine Status Have you recieved a Covid-19 vaccination: No - Review of Systems Constitutional: No Symptoms Eyes: No Symptoms Ears, Nose, & Throat: No Symptoms Respiratory: No Symptoms Cardiac: No Symptoms Abdominal/Gastrointestinal: No Symptoms Genitourinary Symptoms: No Symptoms Musculoskeletal: No Symptoms Skin: No Symptoms Neurological: No Symptoms Psychological: No Symptoms Endocrine: No Symptoms Hematologic/Lymphatic: No Symptoms Immunological/Allergic: No Symptoms - Past Medical History Pertinent Past Medical History: Yes Neurological History: No Pertinent History ENT History: No Pertinent History Cardiac History: No Pertinent History Respiratory History: Bronchitis Endocrine Medical History: Other Musculoskeletal History: Fractures GI Medical History: Hepatitis History: No Pertinent History Psycho-Social History: Depression, Other Female Reproductive Disorders: No Pertinent History Other Medical History: Hepatitis C, Acute Liver Failure, Cholecystectomy (2018), R Knee Scope (2019), B Carpal Tunnel Realse, B elbow surgeries (multiple on R) - Past Surgical History Past Surgical History: Yes Neuro Surgical History: No Pertinent History Cardiac: No Pertinent History Respiratory: No Pertinent History Gastrointestinal: Cholecystectomy Genitourinary: No Pertinent History Musculoskeletal: No Pertinent History Female Surgical History: No Pertinent History Other Surgical History: CYST REmoved. rt and lt carpal tunnel and cubital. right knee. egd - Social History Smoking Status: Former smoker How long have you smoked: 12 years Exposure to second hand smoke: No Alcohol Use: Chronic Drug Use: none Patient Lives Alone: No Significant Family History: no pertinent family hx - Female History Hx Last Menstrual Period: 10/17/2021 Hx Now: (unkn) - Nursing Vital Signs Nursing Vital Signs: Initial Vital Signs Temperature 98.0 F 11/01/21 14:59 Pulse Rate 84 11/01/21 14:59 Blood Pressure 129/72 11/01/21 14:59 O2 Sat by Pulse Oximetry 98 11/01/21 14:59 Pain Scale Pain Intensity 3 - [place] Coma Score Best Eye Response ([place]): (4) open spontaneously Best Verbal Response ([place]): (5) oriented Best Motor Response ([place]): (6) obeys commands [place] Total: 15 - Physical Exam General Appearance: no apparent distress, alert Head Injury: no evidence of injury, contusions, lacerations (2 centimeter right posterior parietal area with minimal oozing), swelling, tenderness, No Najera's Sign, No raccoon eyes Eye Exam: bilateral eye: normal inspection, PERRL, EOMI ENT Exam: airway nml, No evidence of ENT injury, No dental injury Neck Exam: supple, trachea midline, full range of motion, normal alignment Cardiovascular/Respiratory Exam: chest non-tender, normal breath sounds, regular rate/rhythm Gastrointestinal/Abdominal Exam: soft Back Exam: normal range of motion Extremity Exam: non-tender, normal range of motion, normal inspection Mental Status Exam: alert, oriented x 3, cooperative hamper maker machine Exam: normal hearing, normal speech, PERRL Coordination/Gait Exam: normal finger to nose, normal gait, normal cerebellar function, negative Romberg's sign Motor/Sensory Exam: no motor deficit, no sensory deficit, no pronator drift, negative Babinski's sign Skin Exam: normal color SpO2 Interpretation: normal SpO2: 91 O2 Delivery: Room Air Procedures - Laceration/Wound Repair Right Parietal Time of Procedure: 16:00 Wound Location: Right Wound Length (cm): 2 Wound's Depth, Shape: into muscle, linear Wound Explored: clean Irrigated: Yes Hibiclens Prep: Yes Anesthesia: 1% Lidocaine Volume Anesthetic (ccs): 3 Wound Repaired With: Meenu Number of Sutures: 3 Ordered Tests: Active Orders 24 hr Category Date Time Status HEAD WITHOUT CONTRAST [CT] Stat Exams 11/01/21 15:05 Completed Medication Summary Discontinued Medications Generic Name Dose Route Start Last Admin Trade Name Efrain PRN Reason Stop Dose Admin Diphtheria/Tetanus/Acell Pertussis 0.5 ml 11/01/21 15:06 11/01/21 15:24 Tdap --Diph,Pertuss(Acell),Tet Vac/Pf 0.5 Ml Vial IM 11/01/21 15:07 0.5 ml .ONCE ONE Administration Diphtheria/Tetanus/Acell Pertussis Confirm 11/01/21 15:21 Tdap --Diph,Pertuss(Acell),Tet Vac/Pf 0.5 Ml Vial Administered 11/01/21 15:22 Dose 0.5 ml IM .STK-MED ONE - Progress Progress: improved Progress Note: 11/01/21 16:06 Offered local infiltration of lidocaine laceration is repaired. CT head is negative for any acute intracranial findings related to trauma. Recommended Tylenol and outpatient follow-up. Discussed signs symptoms of head injury needing return to ER which she seems understanding. Stable for discharge. Counseled pt/family regarding: diagnosis, need for follow-up, rad results - Departure Departure Disposition: Home Clinical Impression: Scalp laceration, Fall Condition: Stable Critical Care Time: No Referrals: DOCTOR,NO FAMILY [Primary Care Provider] - Follow up/PCP as directed MAGDI WEAVER [ACTIVE STAFF] - Follow up/PCP as directed (1-2 days for reevaluation) Instructions: Laceration Repair With Meenu (DC), Head Injury Observation (DC) Additional Instructions: Take Tylenol as needed for pain. Intermittent ice. Follow head injury instructions and return to ER for any worsening.
== END 2021-11-01 16:21 | disposition home or self-care (01) ==
LOC: ED 14:10
DX: S01.01XA Laceration without foreign body of scalp, initial encounter (principal); W01.198A Fall on same level from slipping, tripping and stumbling with subsequent striking against other object, initial encounter; Y93.K1 Activity, walking an animal; R51.9 Headache, unspecified; Z79.891 Long term (current) use of opiate analgesic
CPT/HCPCS: 12001; 70450; 90471; 90715; 99284

== ENCOUNTER 2021-11-30 02:27 | Emergency (ER) | payer BC ==
[2021-11-30 02:29] VITALS: O2SAT 97
[2021-11-30] MEDS ORDERED: xanAX 0.5 MG PO ONE (03:15)
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
[2021-11-30 03:29] VITALS: BP 122/77; PULSE 92
== END 2021-11-30 03:28 ==
LOC: ED 02:27
DX: Z02.89 Encounter for other administrative examinations (principal); R45.4 Irritability and anger; Z91.19 Patient's noncompliance with other medical treatment and regimen; S00.83XA Contusion of other part of head, initial encounter; X79.XXXA Intentional self-harm by blunt object, initial encounter; Y92.810 Car as the place of occurrence of the external cause; Z72.0 Tobacco use; Z79.899 Other long term (current) drug therapy
CPT/HCPCS: 99283; A9270-GY